=== PATIENT | female | born 1970 | race Hispanic/Latino ===

== ENCOUNTER 2018-07-07 18:34 | Emergency (ER) | payer OTHER ==
[2018-07-07 18:59] LABS: APPEARANCE,URINE Clear (CLEAR); BILIRUBIN,URINE Negative (NEGATIVE); COLOR,URINE Yellow (YELLOW); GLUCOSE, URINE (UA) Negative (NEGATIVE); KETONES,URINE Negative (NEGATIVE); LEUKOCYTE ESTERASE ,URINE Negative (NEGATIVE); NITRATE,URINE Negative (NEGATIVE); OCCULT BLOOD,URINE Small (NEGATIVE); PH,URINE 6.5 (5.0-8.0); PROTEIN,URINE Negative (NEGATIVE); UROBILINOGEN,URINE 0.2 mg/dL (0.2-1.0)
[2018-07-07 19:07] LABS: EOSINOPHILS % (AUTO) 1.7 % (0.0-8.0); HEMATOCRIT 45.2 % (36-48); LYMPHOCYTES % (AUTO) 29.2 % (21.0-51.0); MEAN CORPUSCULAR HEMOGLOBIN 31.3 pg (27.0-33.0); MEAN CORPUSCULAR HGB CONC 34.4 g/dL (32.0-36.0); MEAN CORPUSCULAR VOLUME 90.9 fL (79-99); MONOCYTES % (AUTO) 8.9 % (3.0-13.0); NEUTROPHILS % (AUTO) 59.2 % (40.0-77.0); PLATELET COUNT (AUTO) 383 K/uL (130-400); RED BLOOD CELL COUNT(AUTO) 4.97 MIL/uL (4.00-5.50); RED CELL DISTRIBUTION WIDTH 14.5 % (11.0-15.5); WHITE BLOOD COUNT (AUTO) 7.9 K/uL (4.8-10.8)
[2018-07-07 19:17] LABS: CREATININE 0.7 mg/dL (0.5-1.5); POTASSIUM 3.8 mmol/L (3.5-5.1)
[2018-07-07 19:22] LABS: ALBUMIN 3.6 g/dL (3.5-5.0); BILIRUBIN,TOTAL 0.3 mg/dL (0.2-1.0); TOTAL PROTEIN, SERUM 8.4 g/dL (6.0-8.3)
[2018-07-07 19:47] LABS: RBC,URINE 0-1 /HPF (0-1); WBC,URINE 0-1 /HPF (0-1)
[2018-07-07 19:49] LABS: BACTERIA,URINE Rare /HPF (None Seen); SQUAMOUS EPITHELIAL CELL,UR None Seen /HPF (0-2)
[2018-07-07] MEDS ORDERED: DICYCLOMINE HCL 10 MG/ML 2ML AMP IM ONE (20:10)
[2018-07-07] MEDS ORDERED: MAGNESIUM CITRATE 296 ML SOLUTION ONE (22:44)
== END 2018-07-07 23:01 | disposition home or self-care (01) ==
LOC: EDH 18:34
DX: R10.12 Left upper quadrant pain (principal); R10.32 Left lower quadrant pain; K59.00 Constipation, unspecified; I10 Essential (primary) hypertension
CPT/HCPCS: 36415; 74018; 80053; 81001; 85025; 96372; 99285; J0500

== ENCOUNTER 2021-01-06 10:42 | Emergency (ER) | payer OTHER ==
[2021-01-06] MEDS ORDERED: KETOROLAC TROMETHAMINE 60 MG/2 ML VIAL ONE (12:09)
[2021-01-06] MEDS ORDERED: CLINDAMYCIN HCL 150 MG CAP ONE (12:09)
[2021-01-06] MEDS ORDERED: TETANUS/DIPHTHERIA TOXOID [ADULT] 0.5 ML VIAL IM ONE (12:10)
== END 2021-01-06 12:57 | disposition home or self-care (01) ==
LOC: EDH 10:42
DX: S61.233A Puncture wound without foreign body of left middle finger without damage to nail, initial encounter (principal); L03.012 Cellulitis of left finger; I10 Essential (primary) hypertension; W45.8XXA Other foreign body or object entering through skin, initial encounter; Y93.89 Activity, other specified; Y92.89 Other specified places as the place of occurrence of the external cause; Y99.8 Other external cause status
CPT/HCPCS: 73140; 90471; 90714; 96372; 99284; J1885

== ENCOUNTER 2021-06-13 04:56 | Emergency (ER) | payer OTHER ==
[~2021-06-13] VITALS: Ht 152.4 cm; Wt 80.7 kg
[2021-06-13 04:59] VITALS: BP 169/97
[2021-06-13 05:02] VITALS: BP 169/97
[2021-06-13 05:56] LABS: BASOPHILS % (AUTO) 0.5 % (0.0-5.0); EOSINOPHILS % (AUTO) 1.3 % (0.0-8.0); HEMATOCRIT 42.6 % (36-48); LYMPHOCYTES % (AUTO) 18.7 % (21.0-51.0); MEAN CORPUSCULAR HEMOGLOBIN 30.6 pg (27.0-33.0); MEAN CORPUSCULAR HGB CONC 34.7 g/dL (32.0-36.0); MEAN CORPUSCULAR VOLUME 88.2 fL (79-99); MONOCYTES % (AUTO) 7.9 % (3.0-13.0); NEUTROPHILS % (AUTO) 71.3 % (40.0-77.0); PLATELET COUNT (AUTO) 300 K/uL (130-400); RED BLOOD CELL COUNT(AUTO) 4.83 MIL/uL (4.00-5.50); RED CELL DISTRIBUTION WIDTH 13.9 % (11.0-15.5); WHITE BLOOD COUNT (AUTO) 10.5 K/uL (4.8-10.8)
[2021-06-13 05:58] LABS: APPEARANCE,URINE Clear (CLEAR); BILIRUBIN,URINE Negative (NEGATIVE); COLOR,URINE Yellow (YELLOW); GLUCOSE, URINE (UA) Negative (NEGATIVE); KETONES,URINE Negative (NEGATIVE); LEUKOCYTE ESTERASE ,URINE Negative (NEGATIVE); NITRATE,URINE Negative (NEGATIVE); OCCULT BLOOD,URINE Negative (NEGATIVE); PROTEIN,URINE Negative (NEGATIVE); UROBILINOGEN,URINE 0.2 mg/dL (0.2-1.0)
[2021-06-13 05:59] LABS: HCG,QUAL RESULT NEGATIVE (NEGATIVE)
[2021-06-13 06:12] LABS: CREATININE 0.8 mg/dL (0.5-1.5); POTASSIUM 3.6 mmol/L (3.5-5.1)
[2021-06-13 06:17] LABS: ALBUMIN 3.3 g/dL (3.5-5.0); BILIRUBIN,TOTAL 0.2 mg/dL (0.2-1.0); TOTAL PROTEIN, SERUM 7.7 g/dL (6.0-8.3)
[2021-06-13 06:28] VITALS: BP 164/83
[2021-06-13] MEDS: KETOROLAC 30MG VIAL (30MG/ML) IV ONE (06:30)
[2021-06-13] MEDS ORDERED: METH-662 PO ×2 (06:49→09:25)
== END 2021-06-13 09:46 | disposition home or self-care (01) ==
LOC: EDH 04:56
DX: R07.89 Other chest pain (principal); F41.9 Anxiety disorder, unspecified; I10 Essential (primary) hypertension; E66.9 Obesity, unspecified; Z79.1 Long term (current) use of non-steroidal anti-inflammatories (NSAID)
CPT/HCPCS: 36415; 71045; 80053; 81003; 81025; 82550; 84484; 85025; 93005; 96374; 99285; J1885

== ENCOUNTER 2022-11-20 08:14 | Emergency (ER) | payer OTHER ==
[~2022-11-20] VITALS: Ht 152.4 cm; Wt 78.0 kg
[~2022-11-20 08:14] MED LIST: METH-662 PO
[2022-11-20 09:15] VITALS: BP 144/76
[2022-11-20] MEDS ORDERED: NEO/5DRO4 OP (09:17)
== END 2022-11-20 09:39 | disposition home or self-care (01) ==
LOC: EDH 08:14
DX: H10.9 Unspecified conjunctivitis (principal); I10 Essential (primary) hypertension; F41.9 Anxiety disorder, unspecified

== ENCOUNTER 2023-02-19 19:24 | Emergency (ER) | payer OTHER ==
[~2023-02-19] VITALS: Ht 152.4 cm; Wt 74.8 kg
[~2023-02-19 19:24] MED LIST changes: +NEO/5DRO4 OP
[2023-02-19 20:49] LABS: BASOPHILS % (AUTO) 0.3 % (0.0-5.0); EOSINOPHILS % (AUTO) 2.2 % (0.0-8.0); HEMATOCRIT 40.2 % (36-48); LYMPHOCYTES % (AUTO) 19.6 % (21.0-51.0); MEAN CORPUSCULAR HEMOGLOBIN 30.4 pg (27.0-33.0); MEAN CORPUSCULAR HGB CONC 34.3 g/dL (32.0-36.0); MEAN CORPUSCULAR VOLUME 88.5 fL (79-99); MONOCYTES % (AUTO) 8.3 % (3.0-13.0); NEUTROPHILS % (AUTO) 69.4 % (40.0-77.0); PLATELET COUNT (AUTO) 393 K/uL (130-400); RED BLOOD CELL COUNT(AUTO) 4.54 MIL/uL (4.00-5.50); RED CELL DISTRIBUTION WIDTH 14.1 % (11.0-15.5); WHITE BLOOD COUNT (AUTO) 9.1 K/uL (4.8-10.8)
[2023-02-19] MEDS ORDERED: DIAZEPAM 5 MG/ML 2 ML SYG IVP ONE (21:00)
[2023-02-19] MEDS ORDERED: LACTATED RINGERS 1000ML 1,000 ML IV ONE (21:00)
[2023-02-19] MEDS ORDERED: FAMOTIDINE 20MG VIAL IV ONE (21:00)
[2023-02-19] MEDS ORDERED: METOCLOPRAMIDE 10 MG/2 ML VIAL IVP ONE (21:00)
[2023-02-19] MEDS ORDERED: KETOROLAC 30MG VIAL (30MG/ML) IVP ONE (21:00)
[2023-02-19 21:01] LABS: CREATININE 0.7 mg/dL (0.5-1.5); POTASSIUM 3.4 mmol/L (3.5-5.1)
[2023-02-19 21:14] LABS: ALBUMIN 3.6 g/dL (3.5-5.0); MAGNESIUM 2.2 mg/dL (1.80-2.40); THYROID STIMULATING HORMONE 1.39 uIU/mL (0.36-3.74); TOTAL PROTEIN, SERUM 7.7 g/dL (6.0-8.3)
[2023-02-19 22:18] VITALS: BP 142/78
[2023-02-19] MEDS ORDERED: POTASSIUM BICARB/CIT AC 25 MEQ TABLET.EFF PO ONE (23:00)
== END 2023-02-19 23:05 | disposition home or self-care (01) ==
LOC: EDH 19:24
DX: T50.905A Adverse effect of unspecified drugs, medicaments and biological substances, initial encounter (principal); M79.10 Myalgia, unspecified site; E87.6 Hypokalemia; F41.9 Anxiety disorder, unspecified; E78.00 Pure hypercholesterolemia, unspecified; I10 Essential (primary) hypertension; X58.XXXA Exposure to other specified factors, initial encounter
CPT/HCPCS: 99284; 96374; 96375; 84443; 82550; 83735; 80053; 85025; 36415; J7120; J3490; J3360; J1885; J2765